=== PATIENT | female | born 1950 | race Two or more races ===

== ENCOUNTER → 2016-11-17 | Day surgery (SDC) | payer MEDICARE ==
[~2016-11-17] VITALS: Ht 163.1 cm; Wt 52.0 kg
[~2016-11-17] MED LIST: AZEL6DRO2 EACHEYE; B CO PO; BACI1CAP PO; CA C1TAB59 PO; CHOL20003 PO; DEXAMETHASONE 4 MG/ML, 1ML ONE; FENTANYL PF 100 MCG/2ML ONE; LACTATED RINGERS 1,000 ML IV SCH; LEVO25TA4 PO; LEVO75TA5 PO; LIDOCAINE 1%, 2ML SQ PRN; MAGN100T6 PO; OMEG300C PO; ONDANSETRON 2MG/ML, 2ML ONE; PHENYLEPHRINE 10 MG/ML ONE; PROPOFOL 10 MG/ML, 50ML ONE; VITA80004 PO; [UNRECOGNIZED DRUG - OTHER] PO
[2016-11-17 06:01] VITALS: BP 122/72
== END | disposition home or self-care (01) ==
LOC: OUT 05:20
PROVIDERS: ATTEND Internal Medicine Critical Care Medicine
DX: R91.8 Other nonspecific abnormal finding of lung field (principal); I73.00 Raynaud's syndrome without gangrene; E03.9 Hypothyroidism, unspecified; Z90.710 Acquired absence of both cervix and uterus; Z83.3 Family history of diabetes mellitus; Z83.6 Family history of other diseases of the respiratory system; Z80.3 Family history of malignant neoplasm of breast
CPT/HCPCS: 31623; 31624; 31627; 31628; 71010; 87070; 87102; 87116; 87205; 87206; 88108; 88112; 88172; 88173; 88177; 88305; 88312; J1100; J2370; J2405; J2704; J3010; 31625; 76001

== ENCOUNTER → 2016-12-11 | Outpatient (CLI) | payer MEDICARE ==
[~2016-12-11] MED LIST changes: -DEXAMETHASONE 4 MG/ML, 1ML ONE; -FENTANYL PF 100 MCG/2ML ONE; -LACTATED RINGERS 1,000 ML IV SCH; -LIDOCAINE 1%, 2ML SQ PRN; -ONDANSETRON 2MG/ML, 2ML ONE; -PHENYLEPHRINE 10 MG/ML ONE; -PROPOFOL 10 MG/ML, 50ML ONE
== END | disposition home or self-care (01) ==
LOC: CARD 12:37
PROVIDERS: ATTEND Internal Medicine Critical Care Medicine
DX: C34.92 Malignant neoplasm of unspecified part of left bronchus or lung (principal)
CPT/HCPCS: 94060; 94726; 94729

== ENCOUNTER → 2016-12-27 | Outpatient (CLI) | payer MEDICARE ==
[2016-12-27 10:50] LABS: HEMOGLOBIN 12.8 g/dL (11.7-16.4)
[2016-12-27 11:11] LABS: ASPARTATE AMINO TRANSFERASE 55 U/L (15-37); BLOOD UREA NITROGEN 16 mg/dL (7-18)
== END | disposition home or self-care (01) ==
LOC: STAR 09:43
PROVIDERS: ATTEND Thoracic Surgery (Cardiothoracic Vascular Surgery)
DX: C34.10 Malignant neoplasm of upper lobe, unspecified bronchus or lung (principal)
CPT/HCPCS: 36415; 80053; 85025

== ENCOUNTER 2017-01-10 06:06 | Inpatient (IN) | payer MEDICARE ==
[~2017-01-10] VITALS: Ht 163.8 cm; Wt 58.4 kg
[2017-01-10] MEDS ORDERED: BUPIVACAINE/PF-EPI 0.25% 1:200K ONE (06:22)
[2017-01-10] MEDS ORDERED: LACTATED RINGERS 1,000 ML IV SCH (07:26)
[2017-01-10 07:27] VITALS: BP 116/79
[2017-01-10] MEDS ORDERED: LIDOCAINE 1%, 2ML SQ PRN (07:30)
[2017-01-10] MEDS ORDERED: FENTANYL PF 250 MCG/5ML ONE (08:40)
[2017-01-10] MEDS ORDERED: MIDAZOLAM 1 MG/ML, 2ML ONE (08:40)
[2017-01-10] MEDS ORDERED: ROCURONIUM 10 MG/ML ONE (08:46)
[2017-01-10] MEDS ORDERED: CEFAZOLIN 1,000 MG ONE (08:46)
[2017-01-10] MEDS ORDERED: PHENYLEPHRINE 10 MG/ML ONE (08:46)
[2017-01-10] MEDS ORDERED: ONDANSETRON 2MG/ML, 2ML ONE (08:46)
[2017-01-10] MEDS ORDERED: PROPOFOL 10 MG/ML, 20ML ONE (08:46)
[2017-01-10] MEDS ORDERED: NEOSTIGMINE 1 MG/ML, 10ML ONE (08:46)
[2017-01-10] MEDS ORDERED: GLYCOPYRROLATE 0.2MG/1ML ONE (08:46)
[2017-01-10] MEDS ORDERED: DEXAMETHASONE 4 MG/ML, 1ML ONE (08:46)
[2017-01-10] MEDS ORDERED: KETAMINE 10 MG/ML, 20ML ONE (09:46)
[2017-01-10] MEDS ORDERED: HYDROcodone/APAP 7.5-325MG/15ML UDC PO PRN (10:00)
[2017-01-10] MEDS ORDERED: MEPERIDINE/PF 25MG/0.5ML IVPush PRN (10:00)
[2017-01-10] MEDS ORDERED: HYDROmorphone 1 MG/ML, 1ML IV PRN ×2 (10:00→15:00)
[2017-01-10] MEDS ORDERED: OXYcodone 5 MG/5 ML ORAL.SOL UDC PO PRN (10:00)
[2017-01-10] MEDS ORDERED: ONDANSETRON 2MG/ML, 2ML IVPush PRN (10:00)
[2017-01-10] MEDS ORDERED: PROMETHAZINE 25 MG/ML, 1ML IV PRN (10:00)
[2017-01-10] MEDS ORDERED: KETOROLAC 30 MG/1 ML IV PRN (10:00)
[2017-01-10] MEDS ORDERED: ACETAMINOPHEN 325 MG TABLET PO PRN (10:00)
[2017-01-10] MEDS ORDERED: MIDAZOLAM 1 MG/ML, 2ML IV PRN (10:00)
[2017-01-10] MEDS ORDERED: ENALAPRILAT 1.25 MG/ML, 2ML IVPush PRN (10:30)
[2017-01-10] MEDS ORDERED: ACETAMINOPHEN 650 MG SUPP PR PRN (10:30)
[2017-01-10] MEDS ORDERED: BISACODYL 10 MG SUPP PR PRN (10:30)
[2017-01-10] MEDS ORDERED: LORazepam 2 MG/ML, 1ML IVPush PRN (10:30)
[2017-01-10] MEDS ORDERED: DIPHENHYDRAMINE 25 MG CAPSULE PO PRN (10:30)
[2017-01-10] MEDS ORDERED: morphine SULFATE 10 MG/ML, 1ML IVPush PRN (10:30)
[2017-01-10] MEDS ORDERED: LORazepam 0.5MG TABLET PO PRN (10:30)
[2017-01-10] MEDS ORDERED: LACTULOSE 20 GM/30 ML UDC PO PRN (10:30)
[2017-01-10] MEDS ORDERED: hydrALAzine 20 MG/ML, 1ML IVPush PRN (10:30)
[2017-01-10] MEDS ORDERED: DIPHENHYDRAMINE 50 MG/ML, 1ML IVPush PRN (10:30)
[2017-01-10] MEDS ORDERED: FAMOTIDINE 20 MG TABLET PO SCH (10:30)
[2017-01-10] MEDS ORDERED: HYDROcodone/APAP 5/325 TABLET PO PRN (10:30)
[2017-01-10] MEDS ORDERED: OXYcodone 5 MG/5 ML ORAL.SOL UDC ONE (10:49)
[2017-01-10] MEDS ORDERED: ACETAMINOPHEN 650 MG/20.3 ML UDC ONE (10:49)
[2017-01-10] MEDS ORDERED: FENTANYL PF 100 MCG/2ML ONE (10:49)
[2017-01-10] MEDS: FENTANYL PF 100 MCG/2ML IV PRN ×2 (11:00→11:23)
[2017-01-10] MEDS ORDERED: FAMOTIDINE 20 MG/2 ML IVPush SCH (12:00)
[2017-01-10] MEDS: LACTATED RINGERS 1,000 ML IV SCH ×2 (12:22→23:29)
[2017-01-10] MEDS ORDERED: DOCUSATE 50 MG/5 ML, 10ML UDC NG SCH (12:30)
[2017-01-10] MEDS ORDERED: OXYcodone IR 5MG TABLET PO PRN (15:00)
[2017-01-10] MEDS: DOCUSATE 100 MG CAPSULE PO SCH (15:07)
[2017-01-10] MEDS: FAMOTIDINE 20 MG/2 ML IVPush SCH (15:07)
[2017-01-10 15:08] VITALS: BP 109/69
[2017-01-10] MEDS: CEFAZOLIN PMX 1GM/50ML 50 ML IVPB SCH (16:14)
[2017-01-10] MEDS ORDERED: LACTATED RINGERS 500 ML IVBOLUS ONE (18:00)
[2017-01-10 20:02] VITALS: BP 113/68
[2017-01-10] MEDS: KETOROLAC 30 MG/1 ML IVPush PRN (20:11)
[2017-01-10] MEDS: ONDANSETRON 2MG/ML, 2ML IVPush PRN (20:11)
[2017-01-10] MEDS: AZELASTINE HCL 0.5% EACHEYE SCH (20:28)
[2017-01-10] MEDS: SENNA/DOCUSATE TABLET PO SCH (20:28)
[2017-01-11 00:03] VITALS: BP 114/81
[2017-01-11] MEDS: FAMOTIDINE 20 MG/2 ML IVPush SCH ×2 (00:34→13:29)
[2017-01-11] MEDS: CEFAZOLIN PMX 1GM/50ML 50 ML IVPB SCH (00:34)
[2017-01-11 03:17] VITALS: BP 106/70
[2017-01-11] MEDS: LEVOTHYROXINE 75 MCG TABLET PO SCH (06:01)
[2017-01-11 06:02] LABS: BLOOD UREA NITROGEN 14 mg/dL (7-18)
[2017-01-11 08:18] VITALS: BP 128/77
[2017-01-11] MEDS: AZELASTINE HCL 0.5% EACHEYE SCH ×2 (08:47→21:00)
[2017-01-11] MEDS: ONDANSETRON 2MG/ML, 2ML IVPush PRN (08:48)
[2017-01-11] MEDS: LACTATED RINGERS 1,000 ML IV SCH ×2 (08:51→15:30)
[2017-01-11] MEDS: DOCUSATE 100 MG CAPSULE PO SCH (08:52)
[2017-01-11] MEDS: KETOROLAC 30 MG/1 ML IVPush PRN (08:56)
[2017-01-11] MEDS ORDERED: ENOXAPARIN 40 MG/0.4 ML SQ SCH (09:00)
[2017-01-11] MEDS: ACETAMINOPHEN 325 MG TABLET PO PRN (12:50)
[2017-01-11 16:56] VITALS: BP 128/80
[2017-01-11] MEDS: ENOXAPARIN 30 MG/0.3 ML SQ SCH (18:07)
[2017-01-11 19:35] VITALS: BP 116/69
[2017-01-11] MEDS: SENNA/DOCUSATE TABLET PO SCH (21:06)
[2017-01-12] MEDS: FAMOTIDINE 20 MG/2 ML IVPush SCH ×2 (01:26→12:53)
[2017-01-12 02:30] VITALS: BP 112/68
[2017-01-12] MEDS: LEVOTHYROXINE 75 MCG TABLET PO SCH (05:21)
[2017-01-12 07:40] VITALS: BP 131/84
[2017-01-12] MEDS: LACTATED RINGERS 1,000 ML IV SCH (07:49)
[2017-01-12] MEDS: AZELASTINE HCL 0.5% EACHEYE SCH ×2 (08:32→19:44)
[2017-01-12] MEDS: ENOXAPARIN 30 MG/0.3 ML SQ SCH ×2 (08:32→19:44)
[2017-01-12] MEDS: DOCUSATE 100 MG CAPSULE PO SCH (08:32)
[2017-01-12 19:14] VITALS: BP 142/91
[2017-01-13] MEDS: FAMOTIDINE 20 MG/2 ML IVPush SCH ×2 (01:18→13:02)
[2017-01-13] MEDS: ACETAMINOPHEN 325 MG TABLET PO PRN ×2 (01:27→04:15)
[2017-01-13 04:00] VITALS: BP 131/76
[2017-01-13] MEDS: LEVOTHYROXINE 75 MCG TABLET PO SCH (05:56)
[2017-01-13 07:37] VITALS: BP 154/79
[2017-01-13] MEDS: ENOXAPARIN 30 MG/0.3 ML SQ SCH (08:22)
[2017-01-13] MEDS: AZELASTINE HCL 0.5% EACHEYE SCH (08:22)
[2017-01-13] MEDS: DOCUSATE 100 MG CAPSULE PO SCH (08:22)
[2017-01-13 15:22] VITALS: BP 129/80
== END 2017-01-13 17:50 | disposition home or self-care (01) | DRG 164 ==
LOC: ORIP 06:06 → 4NOR 12:06 → 3NW 01-11 08:17
PROVIDERS: ADMIT Thoracic Surgery (Cardiothoracic Vascular Surgery); ATTEND Thoracic Surgery (Cardiothoracic Vascular Surgery)
PROC: 07B74ZX Excision of Thorax Lymphatic, Percutaneous Endoscopic Approach, Diagnostic (ICD-10-PCS; 2017-01-10)
PROC: 0BTG4ZZ Resection of Left Upper Lung Lobe, Percutaneous Endoscopic Approach (ICD-10-PCS; principal; 2017-01-10 09:00)
DX: C34.12 Malignant neoplasm of upper lobe, left bronchus or lung (principal); I82.629 Acute embolism and thrombosis of deep veins of unspecified upper extremity; M79.89 Other specified soft tissue disorders; Z91.041 Radiographic dye allergy status; Z88.0 Allergy status to penicillin; Z91.012 Allergy to eggs; Z88.2 Allergy status to sulfonamides; Z88.8 Allergy status to other drugs, medicaments and biological substances; Z91.048 Other nonmedicinal substance allergy status
CPT/HCPCS: 36415; 71010; 80048; 85025; 86850; 86900; 86923; 88305; 88309; 93970; C1729; J0690; J1100; J1170; J1650; J1885; J2250; J2405; J2704; J2710; J3010; J3490; J7120; C1760; J2270; J2370; S0028

== ENCOUNTER 2017-06-06 20:04 | Inpatient (IN) | payer MEDICARE ==
[~2017-06-06] VITALS: Ht 162.6 cm; Wt 54.6 kg
[~2017-06-06 20:04] MED LIST changes: +CHOL2000 PO; -CHOL20003 PO
[2017-06-06 20:59] LABS: HEMATOCRIT 37.6 % (34.6-47.8); HEMOGLOBIN 12.5 g/dL (11.7-16.4); WHITE BLOOD COUNT 6.2 x10^3/uL (3.4-10)
[2017-06-06] MEDS ORDERED: SODIUM CHLORIDE FLUSH 10ML SYR IVF ONE (21:00)
[2017-06-06] MEDS ORDERED: SODIUM CHLORIDE 0.9% 1,000ML IVBOLUS ONE (21:00)
[2017-06-06] MEDS ORDERED: ONDANSETRON 2MG/ML, 2ML IVPush ONE (21:00)
[2017-06-06 21:11] LABS: BLOOD UREA NITROGEN 18 mg/dL (7-18)
[2017-06-06] MEDS ORDERED: ONDANSETRON 2MG/ML, 2ML ONE (22:04)
[2017-06-07 02:11] VITALS: BP 113/72
[2017-06-07] MEDS: ACETAMINOPHEN 325 MG TABLET PO PRN (02:36)
[2017-06-07 05:45] LABS: HEMATOCRIT 35.8 % (34.6-47.8); HEMOGLOBIN 12.1 g/dL (11.7-16.4); WHITE BLOOD COUNT 5.4 x10^3/uL (3.4-10)
[2017-06-07 05:52] LABS: BLOOD UREA NITROGEN 18 mg/dL (7-18)
[2017-06-07 05:55] LABS: ASPARTATE AMINO TRANSFERASE 22 U/L (15-37)
[2017-06-07] MEDS: SODIUM CHLORIDE 0.9% 1,000 ML IV SCH ×2 (05:59→16:18)
[2017-06-07] MEDS: LEVOTHYROXINE 75 MCG TABLET PO SCH (06:04)
[2017-06-07] MEDS: ENOXAPARIN 40 MG/0.4 ML SQ SCH (06:05)
[2017-06-07] MEDS: FAMOTIDINE 20 MG TABLET PO SCH ×2 (09:10→21:34)
[2017-06-07] MEDS: MULTIVITS,STRESS FORMULA 1 TABLET PO SCH (09:10)
[2017-06-07] MEDS: CHOLECALCIFEROL 1,000 UNIT TABLET PO SCH (09:10)
[2017-06-07 10:38] VITALS: BP 111/75
[2017-06-07 14:00] VITALS: BP 96/63
[2017-06-07 19:30] VITALS: BP 96/54
[2017-06-08] MEDS: SODIUM CHLORIDE 0.9% 1,000 ML IV SCH ×3 (01:18→22:00)
[2017-06-08] MEDS: ACETAMINOPHEN 325 MG TABLET PO PRN (01:20)
[2017-06-08 01:59] VITALS: BP 96/60
[2017-06-08 05:27] LABS: HEMATOCRIT 32.5 % (34.6-47.8); HEMOGLOBIN 10.9 g/dL (11.7-16.4); WHITE BLOOD COUNT 3.6 x10^3/uL (3.4-10)
[2017-06-08 05:30] LABS: BLOOD UREA NITROGEN 15 mg/dL (7-18)
[2017-06-08 05:55] LABS: DIFF TOTAL CELLS COUNTED 100 CELL DIFF
[2017-06-08 05:57] LABS: VERIFY COUNTS? YES
[2017-06-08] MEDS: LEVOTHYROXINE 75 MCG TABLET PO SCH (06:07)
[2017-06-08] MEDS: ENOXAPARIN 40 MG/0.4 ML SQ SCH (06:08)
[2017-06-08 06:48] VITALS: BP 107/70
[2017-06-08] MEDS: MULTIVITS,STRESS FORMULA 1 TABLET PO SCH (09:02)
[2017-06-08] MEDS: CHOLECALCIFEROL 1,000 UNIT TABLET PO SCH (09:02)
[2017-06-08] MEDS: FAMOTIDINE 20 MG TABLET PO SCH ×2 (09:02→20:37)
[2017-06-08 14:08] VITALS: BP 96/62
[2017-06-08 18:24] VITALS: BP 100/68
[2017-06-09 00:45] VITALS: BP 98/64
[2017-06-09 04:58] LABS: BLOOD UREA NITROGEN 11 mg/dL (7-18)
[2017-06-09 05:01] LABS: ASPARTATE AMINO TRANSFERASE 14 U/L (15-37)
[2017-06-09] MEDS: ENOXAPARIN 40 MG/0.4 ML SQ SCH (06:00)
[2017-06-09] MEDS: LEVOTHYROXINE 75 MCG TABLET PO SCH (06:18)
[2017-06-09] MEDS: SODIUM CHLORIDE 0.9% 1,000 ML IV SCH (08:00)
[2017-06-09 08:34] VITALS: BP 118/76
[2017-06-09] MEDS: FAMOTIDINE 20 MG TABLET PO SCH (09:00)
[2017-06-09] MEDS: MULTIVITS,STRESS FORMULA 1 TABLET PO SCH (09:45)
[2017-06-09] MEDS: CHOLECALCIFEROL 1,000 UNIT TABLET PO SCH (09:45)
[2017-06-09] MEDS ORDERED: MAGN400T26 PO (11:35)
[2017-06-09] MEDS ORDERED: SIMV20TA PO (11:41)
[2017-06-09 14:36] VITALS: BP 98/63
== END 2017-06-09 14:40 | disposition home or self-care (01) | DRG 70 ==
LOC: ED 23:21 → EDIP 23:26 → ED 23:47 → 4NOR 06-07 01:34
PROVIDERS: ADMIT Internal Medicine; ATTEND Internal Medicine
DX: G93.41 Metabolic encephalopathy (principal); E43 Unspecified severe protein-calorie malnutrition; E87.1 Hypo-osmolality and hyponatremia; E86.1 Hypovolemia; E03.9 Hypothyroidism, unspecified; E78.5 Hyperlipidemia, unspecified; G90.2 Horner's syndrome; Z68.20 Body mass index [BMI] 20.0-20.9, adult; Z85.118 Personal history of other malignant neoplasm of bronchus and lung; Z86.73 Personal history of transient ischemic attack (TIA), and cerebral infarction without residual deficits; Z88.2 Allergy status to sulfonamides; Z88.0 Allergy status to penicillin; Z88.8 Allergy status to other drugs, medicaments and biological substances; Z91.041 Radiographic dye allergy status; D18.02 Hemangioma of intracranial structures
CPT/HCPCS: 36415; 70450; 71020; 80048; 80053; 81003; 82040; 82962; 83735; 83930; 83935; 84100; 84295; 84439; 84443; 85025; 96374; J1650; J2405; J7030

== ENCOUNTER 2017-06-13 08:37 | Emergency (ER) | payer MEDICARE ==
[~2017-06-13] VITALS: Ht 162.6 cm; Wt 51.0 kg
[~2017-06-13 08:37] MED LIST changes: +MAGN400T26 PO; +SIMV20TA PO
[2017-06-13] MEDS ORDERED: SODIUM CHLORIDE 0.9% 1,000 ML IV ONE (09:33)
[2017-06-13] MEDS ORDERED: KETOROLAC 30 MG/1 ML IVPush ONE (10:00)
[2017-06-13] MEDS ORDERED: MORPHINE SULFATE 4 MG/ML, 1ML IVPush PRN (10:00)
[2017-06-13] MEDS ORDERED: ONDANSETRON 2MG/ML, 2ML IVPush ONE (10:00)
[2017-06-13] MEDS ORDERED: ASPIRIN 81 MG TABLET CHEW PO ONE (10:00)
[2017-06-13 10:08] LABS: BLOOD UREA NITROGEN 11 mg/dL (7-18)
[2017-06-13 10:12] LABS: HEMATOCRIT 43.6 % (34.6-47.8); HEMOGLOBIN 14.5 g/dL (11.7-16.4); WHITE BLOOD COUNT 7.3 x10^3/uL (3.4-10)
[2017-06-13 10:13] LABS: ASPARTATE AMINO TRANSFERASE 29 U/L (15-37)
[2017-06-13] MEDS ORDERED: KETOROLAC 30 MG/1 ML ONE (10:13)
[2017-06-13] MEDS ORDERED: ONDANSETRON 2MG/ML, 2ML ONE (10:13)
[2017-06-13] MEDS ORDERED: MORPHINE SULFATE 4 MG/ML, 1ML ONE (10:13)
[2017-06-13 10:20] LABS: IS PT STATUS REG ER OR PRE ER? YES
[2017-06-13 12:46] VITALS: BP 114/68
== END 2017-06-13 13:45 | disposition home or self-care (01) ==
LOC: ED 09:52
DX: R07.89 Other chest pain (principal); E03.9 Hypothyroidism, unspecified; Z86.73 Personal history of transient ischemic attack (TIA), and cerebral infarction without residual deficits; Z90.710 Acquired absence of both cervix and uterus; Z87.891 Personal history of nicotine dependence; Z85.118 Personal history of other malignant neoplasm of bronchus and lung
CPT/HCPCS: 36415; 71010; 78582; 80053; 84484; 85025; 85610; 93005; 96361; 96374; 96375; 99285; A9540; A9558; C9898; J1885; J2405; J7030

== ENCOUNTER → 2017-07-04 | Outpatient (CLI) | payer MEDICARE | END | disposition home or self-care (01) | LOC: CFH 12:35 | PROVIDERS: ATTEND Family Medicine | DX: Z12.31 Encounter for screening mammogram for malignant neoplasm of breast (principal); Z80.3 Family history of malignant neoplasm of breast | CPT/HCPCS: G0202 ==

== ENCOUNTER → 2017-07-06 | Outpatient (CLI) | payer MEDICARE | END | disposition home or self-care (01) | LOC: PETCFH 08:01 | PROVIDERS: ATTEND Internal Medicine Critical Care Medicine | DX: I31.3 Pericardial effusion (noninflammatory) (principal); C34.92 Malignant neoplasm of unspecified part of left bronchus or lung | CPT/HCPCS: 78815; A9552 ==

== ENCOUNTER → 2017-09-06 | Outpatient (CLI) | payer MEDICARE ==
[~2017-09-06] MED LIST changes: +GADOBUTROL 7.5 MMOL/7.5 ML PFS ONE
== END | disposition home or self-care (01) ==
LOC: CFH 10:42
PROVIDERS: ATTEND Psychiatry & Neurology Neurology
DX: R94.02 Abnormal brain scan (principal)
CPT/HCPCS: 70553; 82565; A9585

== ENCOUNTER → 2017-11-15 | Outpatient (CLI) | payer MEDICARE ==
[~2017-11-15] MED LIST changes: -GADOBUTROL 7.5 MMOL/7.5 ML PFS ONE
== END | disposition home or self-care (01) ==
LOC: CFH 14:56
PROVIDERS: ATTEND Internal Medicine Critical Care Medicine
DX: R05 Cough (principal); Z85.118 Personal history of other malignant neoplasm of bronchus and lung
CPT/HCPCS: 70490; 71250

== ENCOUNTER 2017-12-04 10:42 | Day surgery (SDC) | payer MEDICARE ==
[2017-12-03 11:18] LABS: BASOPHILS # (AUTO) 0.02 x10^3/uL (0-0.1); BASOPHILS % (AUTO) 1 % (0-1); EOSINOPHILS # (AUTO) 0.03 x10^3/uL (0-0.4); EOSINOPHILS % (AUTO) 1 % (1-7); LYMPHOCYTES # (AUTO) 2.14 x10^3/uL (1-3.4); LYMPHOCYTES % (AUTO) 50 % (22-44); MD NO; MEAN CORPUSCULAR HEMOGLOBIN 27.3 pg (27.0-34.8); MEAN CORPUSCULAR HGB CONC 32.9 g/dL (32.4-35.8); MEAN CORPUSCULAR VOLUME 83.1 fL (80-100); MONOCYTES # (AUTO) 0.22 x10^3/uL (0.2-0.8); MONOCYTES % (AUTO) 5 % (2-9); NEUTROPHILS # (AUTO) 1.88 x10^3/uL (1.8-6.8); NEUTROPHILS % (AUTO) 44 % (42-75); PLATELET COUNT 222 x10^3/uL (130-400); RED BLOOD COUNT 4.96 x10^6/uL (3.82-5.3); RED CELL DISTRIBUTION WIDTH 15.1 % (9.6-15.2)
[2017-12-03 11:25] LABS: INTERNATIONAL NORMALIZED RATIO 0.99 (0.93-1.1); PROTHROMBIN TIME 10.3 Seconds (9.6-11.5)
[2017-12-03 11:30] LABS: ANION GAP 6 mmol/L (5-15); CALCIUM 8.9 mg/dL (8.5-10.1); CHLORIDE 103 mmol/L (98-107); CREATININE 0.65 mg/dL (0.55-1.02)
[~2017-12-04] VITALS: Ht 162.6 cm; Wt 50.9 kg
[2017-12-04] MEDS ORDERED: SODIUM CHLORIDE 0.9% 1,000 ML IV ONE (11:06)
[2017-12-04 11:21] VITALS: BP 134/89
[2017-12-04] MEDS ORDERED: DIPHENHYDRAMINE 50 MG/ML, 1ML IVPush ONE (11:30)
[2017-12-04] MEDS ORDERED: methylPREDNISolone SOD SUCC 125 MG/2 ML IVPush SCH (12:00)
[2017-12-04] MEDS ORDERED: VERAPAMIL 2.5 MG/ML, 2ML ONE (13:40)
[2017-12-04] MEDS ORDERED: FENTANYL PF 100 MCG/2ML ONE ×2 (13:40→14:07)
[2017-12-04] MEDS ORDERED: MIDAZOLAM 1 MG/ML, 2ML ONE ×2 (13:40→14:07)
[2017-12-04] MEDS ORDERED: HEPARIN 1,000 UNITS/ML, 10ML ONE (13:41)
[2017-12-04] MEDS ORDERED: LIDOCAINE 2%, 20ML ONE (13:41)
[2017-12-04] MEDS ORDERED: SODIUM CHLORIDE 0.9% 1,000 ML IV SCH (15:03)
== END 2017-12-04 18:36 | disposition home or self-care (01) ==
LOC: CACL 10:42 → 5SO 16:08 → CACL 18:36
PROVIDERS: ATTEND Internal Medicine Cardiovascular Disease
DX: R06.02 Shortness of breath (principal); C34.92 Malignant neoplasm of unspecified part of left bronchus or lung; Z88.0 Allergy status to penicillin; Z88.8 Allergy status to other drugs, medicaments and biological substances; Z88.1 Allergy status to other antibiotic agents; Z91.041 Radiographic dye allergy status; E03.9 Hypothyroidism, unspecified; Z86.010 Personal history of colon polyps
CPT/HCPCS: 36415; 80048; 85025; 85610; 93460; 99156; 99157; C1894; J1200; J2250; J2930; J3010; J3490; J7030; Q9967; J1644

== ENCOUNTER → 2017-12-26 | Outpatient (CLI) | payer MEDICARE | LOC: PETCFH 09:33 | PROVIDERS: ATTEND Internal Medicine Critical Care Medicine | DX: C34.92 Malignant neoplasm of unspecified part of left bronchus or lung (principal) | CPT/HCPCS: 78815; A9552 ==

== ENCOUNTER → 2018-07-08 | Outpatient (CLI) | payer MEDICARE | END | disposition home or self-care (01) | LOC: CFH 09:51 | PROVIDERS: ATTEND Family Medicine | DX: Z12.31 Encounter for screening mammogram for malignant neoplasm of breast (principal); Z80.3 Family history of malignant neoplasm of breast; Z85.118 Personal history of other malignant neoplasm of bronchus and lung | CPT/HCPCS: 77067 ==

== ENCOUNTER 2018-12-25 08:28 | Outpatient (CLI) | payer MEDICARE | END 2018-12-25 23:59 | disposition home or self-care (01) | LOC: PETCFH 08:28 | PROVIDERS: ATTEND Internal Medicine Critical Care Medicine | DX: C34.92 Malignant neoplasm of unspecified part of left bronchus or lung (principal); Z87.891 Personal history of nicotine dependence | CPT/HCPCS: 78815; A9552 ==

== ENCOUNTER 2019-08-25 13:37 | Outpatient (CLI) | payer MEDICARE | END 2019-08-25 23:59 | disposition home or self-care (01) | LOC: RAD 13:37 | PROVIDERS: ATTEND Internal Medicine | DX: J45.40 Moderate persistent asthma, uncomplicated (principal); I82.722 Chronic embolism and thrombosis of deep veins of left upper extremity; G90.2 Horner's syndrome; C34.90 Malignant neoplasm of unspecified part of unspecified bronchus or lung; Z88.2 Allergy status to sulfonamides; Z88.6 Allergy status to analgesic agent; Z91.018 Allergy to other foods; Z91.048 Other nonmedicinal substance allergy status; Z79.899 Other long term (current) drug therapy; Z86.718 Personal history of other venous thrombosis and embolism | CPT/HCPCS: 76000 ==

== ENCOUNTER → 2019-09-01 | Outpatient (CLI) | payer MEDICARE | END | disposition home or self-care (01) | LOC: CARD 14:27 | PROVIDERS: ATTEND Internal Medicine | DX: R06.09 Other forms of dyspnea (principal); G90.2 Horner's syndrome; C34.90 Malignant neoplasm of unspecified part of unspecified bronchus or lung | CPT/HCPCS: 94010; 94618; 94726; 94729 ==

== ENCOUNTER 2020-01-14 08:28 | Outpatient (CLI) | payer MEDICARE | END 2020-01-14 23:59 | disposition home or self-care (01) | LOC: PETCFH 08:28 | PROVIDERS: ATTEND Internal Medicine | DX: C34.92 Malignant neoplasm of unspecified part of left bronchus or lung (principal); I31.3 Pericardial effusion (noninflammatory); R06.02 Shortness of breath; G90.2 Horner's syndrome; E03.9 Hypothyroidism, unspecified; R91.8 Other nonspecific abnormal finding of lung field; Z90.2 Acquired absence of lung [part of] | CPT/HCPCS: 78815; A9552 ==

== ENCOUNTER 2020-02-04 05:55 | Day surgery (SDC) | payer MEDICARE ==
[~2020-02-04] VITALS: Ht 162.6 cm; Wt 57.0 kg
[2020-02-04] MEDS ORDERED: SODIUM CHLORIDE 0.9% 1,000 ML IV SCH (07:21)
[2020-02-04 07:25] VITALS: BP 119/80
[2020-02-04] MEDS ORDERED: FLUMAZENIL 0.1 MG/1 ML, 5ML ONE (08:00)
[2020-02-04] MEDS ORDERED: NALOXONE 1 MG/ML, 2ML ONE (08:00)
[2020-02-04] MEDS ORDERED: MIDAZOLAM 1 MG/ML, 5ML ONE ×2 (08:00→12:01)
[2020-02-04] MEDS ORDERED: FENTANYL PF 100 MCG/2ML ONE ×2 (08:00→12:01)
[2020-02-04] MEDS ORDERED: LIDOCAINE 1%, 10ML ONE (11:27)
== END 2020-02-04 15:30 | disposition home or self-care (01) ==
LOC: OUT 05:55
PROVIDERS: ATTEND Pathology Hematology
DX: C34.32 Malignant neoplasm of lower lobe, left bronchus or lung (principal); J93.9 Pneumothorax, unspecified; I25.10 Atherosclerotic heart disease of native coronary artery without angina pectoris; J45.909 Unspecified asthma, uncomplicated; E03.9 Hypothyroidism, unspecified; F41.9 Anxiety disorder, unspecified; Z79.890 Hormone replacement therapy; Z79.899 Other long term (current) drug therapy; Z87.891 Personal history of nicotine dependence; Z88.0 Allergy status to penicillin; Z88.2 Allergy status to sulfonamides; Z88.8 Allergy status to other drugs, medicaments and biological substances; Z91.041 Radiographic dye allergy status; Z91.012 Allergy to eggs; Z91.018 Allergy to other foods; Z86.718 Personal history of other venous thrombosis and embolism; Z90.2 Acquired absence of lung [part of]; Z80.3 Family history of malignant neoplasm of breast; Z83.6 Family history of other diseases of the respiratory system
CPT/HCPCS: 32405; 32557; 71045; 71250; 77012; 88305; 99156; 99157; C1729; C1769; C2613; J2250; J3010; J7030; 32551; J2310

== ENCOUNTER 2020-02-06 09:43 | Outpatient (CLI) | payer MEDICARE | END 2020-02-06 23:59 | disposition home or self-care (01) | LOC: RAD 09:43 | PROVIDERS: ATTEND Radiology Diagnostic Radiology | DX: R07.9 Chest pain, unspecified (principal) | CPT/HCPCS: 71045 ==

== ENCOUNTER 2020-02-19 07:14 | Outpatient (CLI) | payer MEDICARE | END 2020-02-19 23:59 | disposition home or self-care (01) | LOC: ROC 07:14 | PROVIDERS: ATTEND Radiology Radiation Oncology | DX: Z08 Encounter for follow-up examination after completed treatment for malignant neoplasm (principal); C34.32 Malignant neoplasm of lower lobe, left bronchus or lung; C79.31 Secondary malignant neoplasm of brain; I25.10 Atherosclerotic heart disease of native coronary artery without angina pectoris; E03.9 Hypothyroidism, unspecified; J45.909 Unspecified asthma, uncomplicated; Z79.899 Other long term (current) drug therapy; Z90.2 Acquired absence of lung [part of] | CPT/HCPCS: 99214; G0463 ==

== ENCOUNTER → 2020-02-25 | Outpatient (CLI) | payer MEDICARE ==
[~2020-02-25] MED LIST changes: +GADOTERATE 7.5 MMOL/15 ML SYR ONE
== END | disposition home or self-care (01) ==
LOC: CFH 10:12
PROVIDERS: ATTEND Radiology Radiation Oncology
DX: C79.31 Secondary malignant neoplasm of brain (principal); R94.02 Abnormal brain scan
CPT/HCPCS: 70553; A9575

== ENCOUNTER → 2020-03-30 | Outpatient (CLI) | payer MEDICARE ==
[~2020-03-30] MED LIST changes: -GADOTERATE 7.5 MMOL/15 ML SYR ONE
== END | disposition home or self-care (01) ==
LOC: STAR 10:01
PROVIDERS: ATTEND Nurse Practitioner Family
DX: Z01.818 Encounter for other preprocedural examination (principal); C34.32 Malignant neoplasm of lower lobe, left bronchus or lung
CPT/HCPCS: 93005

== ENCOUNTER 2020-05-17 09:01 | Outpatient (CLI) | payer MEDICARE ==
[2020-05-17] MEDS ORDERED: GADOTERATE 7.5 MMOL/15 ML VIAL ONE (09:48)
[2020-05-21] MEDS ORDERED: OSIM80TA PO (20:09)
== END 2020-05-17 23:59 | disposition home or self-care (01) ==
LOC: RAD 09:01
PROVIDERS: ATTEND Radiology Radiation Oncology
DX: C79.31 Secondary malignant neoplasm of brain (principal)
CPT/HCPCS: 70553; A9575

== ENCOUNTER → 2020-05-19 | Outpatient (CLI) | payer MEDICARE ==
[~2020-05-19] MED LIST changes: +OSIM80TA PO
== END | disposition home or self-care (01) ==
LOC: ROC 07:47
PROVIDERS: ATTEND Radiology Radiation Oncology
DX: C79.31 Secondary malignant neoplasm of brain (principal)
CPT/HCPCS: 99213; G0463

== ENCOUNTER → 2020-06-01 | Outpatient (CLI) | payer MEDICARE | END | disposition home or self-care (01) | LOC: CFH 09:45 | PROVIDERS: ATTEND Pathology Hematology | DX: C34.32 Malignant neoplasm of lower lobe, left bronchus or lung (principal); R91.8 Other nonspecific abnormal finding of lung field; J98.4 Other disorders of lung; I77.810 Thoracic aortic ectasia; I25.10 Atherosclerotic heart disease of native coronary artery without angina pectoris; I70.0 Atherosclerosis of aorta; M85.88 Other specified disorders of bone density and structure, other site | CPT/HCPCS: 71250 ==

== ENCOUNTER → 2020-06-09 | Outpatient (CLI) | payer MEDICARE | END | disposition home or self-care (01) | LOC: ROC 09:04 | PROVIDERS: ATTEND Radiology Radiation Oncology | DX: C79.31 Secondary malignant neoplasm of brain (principal); C34.32 Malignant neoplasm of lower lobe, left bronchus or lung; I25.10 Atherosclerotic heart disease of native coronary artery without angina pectoris; E03.9 Hypothyroidism, unspecified; Z79.899 Other long term (current) drug therapy; Z87.891 Personal history of nicotine dependence; Z90.710 Acquired absence of both cervix and uterus | CPT/HCPCS: 99213; G0463 ==

== ENCOUNTER → 2020-07-09 | Outpatient (CLI) | payer MEDICARE | END | disposition home or self-care (01) | LOC: CFH 09:45 | PROVIDERS: ATTEND Pathology Hematology | DX: Z51.11 Encounter for antineoplastic chemotherapy (principal); C34.32 Malignant neoplasm of lower lobe, left bronchus or lung; J98.4 Other disorders of lung | CPT/HCPCS: 71046 ==

== ENCOUNTER → 2020-07-23 | Outpatient (CLI) | payer MEDICARE | END | disposition home or self-care (01) | LOC: CFH 08:52 | PROVIDERS: ATTEND Family Medicine | DX: Z12.31 Encounter for screening mammogram for malignant neoplasm of breast (principal); Z80.3 Family history of malignant neoplasm of breast | CPT/HCPCS: 76641; 77063; 77067 ==

== ENCOUNTER → 2020-07-28 | Outpatient (CLI) | payer MEDICARE ==
[~2020-07-28] MED LIST changes: +GADOTERATE 7.5 MMOL/15 ML SYR ONE
== END | disposition home or self-care (01) ==
LOC: CFH 08:55
PROVIDERS: ATTEND Radiology Radiation Oncology
DX: C79.31 Secondary malignant neoplasm of brain (principal)
CPT/HCPCS: 70553; A9575

== ENCOUNTER → 2020-08-04 | Outpatient (CLI) | payer MEDICARE ==
[~2020-08-04] MED LIST changes: -GADOTERATE 7.5 MMOL/15 ML SYR ONE
== END | disposition home or self-care (01) ==
LOC: ROC 07:21
PROVIDERS: ATTEND Radiology Radiation Oncology
DX: Z08 Encounter for follow-up examination after completed treatment for malignant neoplasm (principal); E03.9 Hypothyroidism, unspecified; Z85.841 Personal history of malignant neoplasm of brain; Z85.118 Personal history of other malignant neoplasm of bronchus and lung; Z90.710 Acquired absence of both cervix and uterus
CPT/HCPCS: 99213; G0463

== ENCOUNTER → 2020-09-01 | Outpatient (CLI) | payer MEDICARE | END | disposition home or self-care (01) | LOC: CFH 09:51 | PROVIDERS: ATTEND Radiology Radiation Oncology | DX: C34.32 Malignant neoplasm of lower lobe, left bronchus or lung (principal); R91.8 Other nonspecific abnormal finding of lung field; J98.4 Other disorders of lung | CPT/HCPCS: 71250 ==

== ENCOUNTER 2020-09-03 07:18 | Outpatient (CLI) | payer MEDICARE | END 2020-09-03 23:59 | disposition home or self-care (01) | LOC: ROC 07:18 | PROVIDERS: ATTEND Radiology Radiation Oncology | DX: C79.31 Secondary malignant neoplasm of brain (principal); C34.92 Malignant neoplasm of unspecified part of left bronchus or lung; E03.9 Hypothyroidism, unspecified; Z90.710 Acquired absence of both cervix and uterus | CPT/HCPCS: 99212; G0463 ==

== ENCOUNTER → 2020-11-08 | Outpatient (CLI) | payer MEDICARE ==
[~2020-11-08] MED LIST changes: +GADOTERATE 7.5 MMOL/15 ML SYR ONE
== END | disposition home or self-care (01) ==
LOC: CFH 10:30
PROVIDERS: ATTEND Radiology Radiation Oncology
DX: C79.31 Secondary malignant neoplasm of brain (principal); I67.82 Cerebral ischemia; G93.89 Other specified disorders of brain
CPT/HCPCS: 70553; A9575

== ENCOUNTER → 2020-11-10 | Outpatient (CLI) | payer MEDICARE ==
[~2020-11-10] MED LIST changes: -GADOTERATE 7.5 MMOL/15 ML SYR ONE
== END | disposition home or self-care (01) ==
LOC: ROC 07:20
PROVIDERS: ATTEND Radiology Radiation Oncology
DX: Z08 Encounter for follow-up examination after completed treatment for malignant neoplasm (principal); Z85.118 Personal history of other malignant neoplasm of bronchus and lung; Z85.841 Personal history of malignant neoplasm of brain
CPT/HCPCS: 99213; G0463

== ENCOUNTER → 2021-01-05 | Outpatient (CLI) | payer MEDICARE ==
[~2021-01-05] MED LIST changes: +GADOTERATE 7.5 MMOL/15ML SYR ONE
== END | disposition home or self-care (01) ==
LOC: CFH 08:23
PROVIDERS: ATTEND Radiology Radiation Oncology
DX: C79.31 Secondary malignant neoplasm of brain (principal)
CPT/HCPCS: 70553; A9575

== ENCOUNTER 2021-01-13 07:28 | Outpatient (CLI) | payer MEDICARE ==
[~2021-01-13 07:28] MED LIST changes: -GADOTERATE 7.5 MMOL/15ML SYR ONE
== END 2021-01-13 23:59 | disposition home or self-care (01) ==
LOC: ROC 07:28
PROVIDERS: ATTEND Radiology Radiation Oncology
DX: Z08 Encounter for follow-up examination after completed treatment for malignant neoplasm (principal); Z85.841 Personal history of malignant neoplasm of brain
CPT/HCPCS: 99213; G0463

== ENCOUNTER → 2021-03-02 | Outpatient (CLI) | payer MEDICARE ==
[~2021-03-02] MED LIST changes: +GADOTERATE 7.5 MMOL/15ML SYR ONE
== END | disposition home or self-care (01) ==
LOC: CFH 10:04
PROVIDERS: ATTEND Radiology Radiation Oncology
DX: C79.31 Secondary malignant neoplasm of brain (principal); C34.32 Malignant neoplasm of lower lobe, left bronchus or lung; R94.5 Abnormal results of liver function studies
CPT/HCPCS: 70553; 71250; 74176; A9575

== ENCOUNTER → 2021-03-10 | Outpatient (CLI) | payer MEDICARE ==
[~2021-03-10] MED LIST changes: -GADOTERATE 7.5 MMOL/15ML SYR ONE
== END | disposition home or self-care (01) ==
LOC: ROC 08:28
PROVIDERS: ATTEND Radiology Radiation Oncology
DX: Z08 Encounter for follow-up examination after completed treatment for malignant neoplasm (principal); Z85.841 Personal history of malignant neoplasm of brain; Z85.118 Personal history of other malignant neoplasm of bronchus and lung
CPT/HCPCS: 99212; G0463

== ENCOUNTER → 2021-03-29 | Outpatient (CLI) | payer MEDICARE | END | disposition home or self-care (01) | LOC: RAD 09:43 | PROVIDERS: ATTEND Pathology Hematology | DX: C34.32 Malignant neoplasm of lower lobe, left bronchus or lung (principal); R16.1 Splenomegaly, not elsewhere classified | CPT/HCPCS: 76700 ==

== ENCOUNTER 2021-06-16 07:20 | Outpatient (CLI) | payer MEDICARE | END 2021-06-16 23:59 | disposition home or self-care (01) | LOC: ROC 07:20 | PROVIDERS: ATTEND Radiology Radiation Oncology | DX: Z02.9 Encounter for administrative examinations, unspecified (principal) ==